=== PATIENT | female | born 2000 | race Caucasian/White ===

== ENCOUNTER 2018-04-11 22:35 | Emergency (ER) | payer SELFPAY ==
[~2018-04-11] VITALS: Ht 154.9 cm; Wt 48.1 kg
[2018-04-11 22:40] VITALS: BP 105/61
--- NOTE | 2018-04-11 23:03 | PHYS DOC ---
Adult General [facility] HPI Patient is a 17-year-old who presents with complaint of vaginal spotting. Patient indicates that over the last week she has had intermittent lower abdominal/pelvic pain that she describes as sharp and stabbing in nature. She states the pain is worsened when she tries to stretch. She denies any nausea or vomiting. She believes to be approximately 7-8 weeks . She denies any urinary discomfort or back pain. Review of Systems Review of Systems Constitutional: Denies fever or chills [] Respiratory: Denies cough or shortness of breath [] Cardiovascular: No additional information not addressed in HPI [] GI: Complains of lower abdominal/pelvic pain without nausea or vomiting[] : Denies dysuria or hematuria [] Musculoskeletal: Denies back pain or joint pain [] All other systems were reviewed and found to be within normal limits, except as documented in this note. Physical Exam Physical Exam Constitutional: Well developed, well nourished, no acute distress, non-toxic appearance. [] HENT: Normocephalic, atraumatic, bilateral external ears normal, oropharynx moist, no oral exudates, nose normal. [] Eyes: PERRLA, EOMI, conjunctiva normal, no discharge. [] Neck: Normal range of motion, no tenderness, supple, no stridor. [] Cardiovascular:Heart rate regular rhythm [] Lungs & Thorax: Bilateral breath sounds clear to auscultation [] Abdomen: Bowel sounds normal, soft, no tenderness. [] Skin: Warm, dry, no erythema, no rash. [] Extremities: No tenderness, no cyanosis, no clubbing, ROM intact, no edema. [] Neurologic: Alert and oriented X 3, normal motor function, normal sensory function, no focal deficits noted. [] Current Patient Data Lab Results Laboratory Tests Test 04/11/18 22:56 POC Urine HCG, Qualitative hcg positive (Negative) EKG EKG [] Radiology/Procedures Radiology/Procedures [] Impressions: Ultrasound demonstrates a viable fetus with gestational age of 8 weeks 3 days. Course & Med Decision Making Course & Med Decision Making Pertinent Labs and Imaging studies reviewed. (See chart for details) [] Dragon Disclaimer Dragon Disclaimer This electronic medical record was generated, in whole or in part, using a voice recognition dictation system. Departure Departure: Impression: Primary Impression: Threatened Disposition: 01 HOME, SELF-CARE Condition: STABLE Referrals: [facility]PR[facility]ERT[facility] (PCP) Patient Instructions: Threatened Miscarriage FABI CASTELAN Jr., DO Apr 11, 2018 23:03
[2018-04-11 23:37] LABS: BASO % 0 % (0-3); EOS # 0.1 x10^3/uL (0.0-0.7); EOS % 0 % (0-3); HEMATOCRIT 34.3 % (36.0-47.0); HEMOGLOBIN 11.8 g/dL (12.0-15.5); LYMPH % 22 % (24-48); MEAN CORPUSCULAR HEMOGLOBIN 32 pg (25-35); MEAN CORPUSCULAR HGB CONC 34 g/dL (31-37); MEAN CORPUSCULAR VOLUME 94 fL (79-100); MONO # 0.8 x10^3/uL (0.0-1.1); MONO % 6 % (0-9); NEUT # 9.8 x10^3uL (1.8-7.7); NEUT % 71 % (31-73); PLATELET COUNT 173 x10^3/uL (140-400); RED BLOOD COUNT 3.66 x10^6/uL (3.50-5.40); RED CELL DISTRIBUTION WIDTH 13.2 % (11.5-14.5); WHITE BLOOD COUNT 13.7 x10^3/uL (4.0-11.0)
[2018-04-11 23:40] LABS: BILIRUBIN,URINE NEG (NEG); CLARITY,URINE HAZY; COLOR,URINE YELLOW; GLUCOSE,URINE NEG (NEG)
[2018-04-11 23:41] LABS: BACTERIA,URINE MOD /HPF (0-FEW); NITRITE,URINE NEG (NEG); RBC,URINE OCC /HPF (0-2); SQUAMOUS EPITHELIAL CELL,UR FEW /LPF; UROBILINOGEN,URINE 0.2 mg/dL (0.2 mg/dL)
[2018-04-11 23:45] LABS: ALBUMIN 3.7 g/dL (3.4-5.0); CALCIUM 8.7 mg/dL (8.5-10.1); CREATININE 0.7 mg/dL (0.6-1.0); DIRECT BILIRUBIN 0.1 mg/dL (0.0-0.2); GFR 107.8; POTASSIUM 3.7 mmol/L (3.5-5.1); TOTAL BILIRUBIN 0.2 mg/dL (0.2-1.0); TOTAL PROTEIN 6.9 g/dL (6.4-8.2)
--- NOTE | 2018-04-12 02:19 | RAD ---
OB ultrasound less than 14 weeks and transvaginal OB ultrasound HISTORY: with pelvic pain and vaginal bleeding Sonographic examination of the was performed by transabdominal and endovaginal technique. Multiple static images were obtained. OB ultrasound less than 14 weeks: There is a gestational sac in the uterus. There is a yolk sac and pole. The crown-rump length of 1.93 cm corresponds with an 8 week 3 day gestational age. The heartbeat is confirmed at 163 beats for minute. Transvaginal OB ultrasound: The right ovary appears normal normal blood flow. The left ovary appears normal with normal blood flow. The LMP of 02/07/2018 corresponds with a 9 week 1 day gestational age and estimated confinement of November 14, 2018. Estimated confinement ultrasound is 11/19/2018. Visualization of structures is limited at this early gestational age. IMPRESSION: 1. Single live intrauterine measuring 8 weeks 3 days gestational age. This is within one standard deviation of size by LMP. 2. No abnormality identified. A short-term follow-up ultrasound could be performed if clinically indicated otherwise a structural survey would be performed at 18-21 weeks gestational age. Electronically signed by: Bravo Luo III, MD (04/12/2018 2:16 AM) [facility]
== END 2018-04-12 02:22 | disposition home or self-care (01) ==
LOC: ER 22:35
DX: O20.0 Threatened abortion (principal); Z3A.09 9 weeks gestation of pregnancy
CPT/HCPCS: 36415; 76801; 76817; 80048; 80076; 81001; 81025; 84702; 85025; 86900; 86901; 87086; 99285-25